=== PATIENT | female | born 1990 | race Two or more races ===

== ENCOUNTER 2017-06-30 06:57 | Emergency (ER) | payer MEDICAID ==
[~2017-06-30] VITALS: Ht 162.6 cm; Wt 81.6 kg
[2017-06-30] MEDS ORDERED: MORPHINE SULFATE 4 MG/ML SYR/VIAL ONE (07:30)
[2017-06-30] MEDS ORDERED: ONDANSETRON HCL 4 MG/2 ML VIAL ONE (07:30)
[2017-06-30] MEDS ORDERED: SODIUM CHLORIDE 0.9% 1,000 ML IVB ONE (07:31)
[2017-06-30] MEDS ORDERED: MORPHINE SULFATE 4 MG/ML SYR/VIAL IV ONE (07:45)
[2017-06-30] MEDS ORDERED: ONDANSETRON HCL 4 MG/2 ML VIAL IV ONE (07:45)
[2017-06-30 07:49] LABS: Basophils # (auto) 0 uL; Basophils % (auto) 0.4 % (0.0-2.0); Eosinophils # (auto) 0.1 uL; Eosinophils % (auto) 0.8 % (0.0-7.0); Hemoglobin 15.4 g/dL (12.2-16.2); Lymphocytes # (auto) 2.4 uL; Lymphocytes % (auto) 29.3 % (10.0-50.0); Mean Corpuscular Hemoglobin 29.9 pg (28.0-32.0); Mean Corpuscular Hgb Conc. 33.6 g/dL (32.0-36.0); Mean Corpuscular Volume 89.1 fL (80.0-100.0); Monocytes # (auto) 0.5 uL; Monocytes % (auto) 5.5 % (0.0-12.0); Neutrophils # (auto) 5.3 uL; Nucleated Red Blood Cells % 0.1 %; Platelet Count (auto) 310 10^3/uL (140-450); Red Blood Cells 5.16 10^6/uL (4.0-5.20); Red Cell Distribution Width 12.3 % (11.8-14.3); White Blood Cell 8.3 10^3/uL (4.4-10.8)
[2017-06-30] MEDS ORDERED: diphenhdrAMINE HCL 50 MG/1 ML VL ONE (07:53)
[2017-06-30] MEDS ORDERED: diphenhdrAMINE HCL 50 MG/1 ML VL IV ONE (08:00)
[2017-06-30 08:03] LABS: INR 1.02 (0.9-1.15); Partial Thromboplastin Time 28.1 sec (22.64-33.71); Prothrombin Time 11.1 sec (9.37-12.3)
[2017-06-30 08:14] LABS: Albumin 4.2 g/dL (3.4-5.0); Bilirubin, Total 0.6 mg/dL (0.2-1.0); Calcium 8.8 mg/dL (8.5-10.1); Magnesium 2.6 mg/dL (1.6-2.6); Potassium 3.4 mmol/L (3.5-5.1); Total Protein 7.8 g/dL (6.4-8.2)
[2017-06-30 08:20] VITALS: BP 131/72
[2017-06-30] MEDS ORDERED: PROMETHAZINE HCL 25 MG/ML 1ML IV ONE (08:30)
[2017-06-30] MEDS ORDERED: HYDROmorphone HCL 2 MG/ML VL IV ONE (08:30)
[2017-06-30] MEDS ORDERED: KETOROLAC TROMETH 30 MG/ML 1ML VIAL IV ONE (08:30)
[2017-06-30 08:36] LABS: Urine Bacteria FEW /hpf (None Seen); Urine Blood 3+ /uL (Negative); Urine Mucus FEW (None Seen); Urine WBC 9 /hpf (0 - 5)
== END 2017-06-30 09:20 | disposition home or self-care (01) ==
LOC: ER 06:57
DX: N20.0 Calculus of kidney (principal)
CPT/HCPCS: 36415; 74176; 80053; 81001; 83690; 83735; 84702; 85025; 85610; 85730; 96361; 96374; 96375; 99285; J1200; J1885; J2270; J2405; J2550; J7030

== ENCOUNTER 2019-01-24 12:23 | Emergency (ER) | payer MEDICAID ==
[~2019-01-24] VITALS: Ht 162.6 cm; Wt 77.1 kg
[2019-01-24 12:40] VITALS: BP 107/62
[2019-01-24 13:16] LABS: Urine Bacteria FEW /hpf (None Seen); Urine Blood TRACE /uL (Negative); Urine Mucus MODERATE (None Seen); Urine Specific Gravity 1.034 (1.001-1.035); Urine WBC 9 /hpf (0 - 5)
[2019-01-24 13:35] LABS: Basophils # (auto) 0.1 uL; Basophils % (auto) 0.6 % (0.0-2.0); Eosinophils # (auto) 0 uL; Eosinophils % (auto) 0.4 % (0.0-7.0); Hematocrit 43.6 % (36.0-46.0); Hemoglobin 14.8 g/dL (12.2-16.2); Lymphocytes # (auto) 1.2 uL; Lymphocytes % (auto) 14.6 % (10.0-50.0); Mean Corpuscular Hemoglobin 30.9 pg (28.0-32.0); Mean Corpuscular Hgb Conc. 33.8 g/dL (32.0-36.0); Mean Corpuscular Volume 91.2 fL (80.0-100.0); Monocytes # (auto) 0.5 uL; Monocytes % (auto) 5.4 % (0.0-12.0); Neutrophils # (auto) 6.7 uL; Platelet Count (auto) 228 10^3/uL (140-450); Red Blood Cells 4.78 10^6/uL (4.0-5.20); Red Cell Distribution Width 12.5 % (11.8-14.3); White Blood Cell 8.5 10^3/uL (4.4-10.8)
[2019-01-24 13:55] LABS: Albumin 4.2 g/dL (3.4-5.0); BUN/Creatinine Ratio 13.7; Calcium 9.4 mg/dL (8.5-10.1); Potassium 3.3 mmol/L (3.5-5.1)
[2019-01-24 13:57] LABS: Bilirubin, Total 0.6 mg/dL (0.2-1.0); Total Protein 7.6 g/dL (6.4-8.2)
[2019-01-24] MEDS ORDERED: SODIUM CHLORIDE 0.9% 1,000 ML IV ONE (18:15)
[2019-01-24] MEDS ORDERED: PROMETHAZINE HCL 25 MG/ML 1ML IV ONE (18:15)
[2019-01-24] MEDS ORDERED: POTASSIUM EFFERVESENT TAB 25 MEQ GT ONE (20:45)
[2019-01-24] MEDS ORDERED: POTASSIUM CHL 20 Meq TABLET PO ONE (21:15)
== END 2019-01-24 21:12 | disposition home or self-care (01) ==
LOC: ER 12:24
DX: O21.8 Other vomiting complicating pregnancy (principal); O23.41 Unspecified infection of urinary tract in pregnancy, first trimester; O99.281 Endocrine, nutritional and metabolic diseases complicating pregnancy, first trimester; E87.6 Hypokalemia; Z3A.01 Less than 8 weeks gestation of pregnancy
CPT/HCPCS: 36415; 76801; 80053; 81001; 84702; 85025; 94761; 96361; 96374; 99284; J2550

== ENCOUNTER 2019-03-14 08:24 | Emergency (ER) | payer MEDICAID ==
[~2019-03-14] VITALS: Ht 162.6 cm; Wt 74.4 kg
[2019-03-14 08:58] LABS: Urine Bacteria NONE SEEN /hpf (None Seen); Urine Blood Negative /uL (Negative); Urine Mucus FEW (None Seen); Urine Specific Gravity 1.022 (1.001-1.035); Urine WBC 1 /hpf (0 - 5)
[2019-03-14 09:00] VITALS: BP 122/52
== END 2019-03-14 09:57 | disposition home or self-care (01) ==
LOC: ER 08:26
DX: O99.511 Diseases of the respiratory system complicating pregnancy, first trimester (principal); J03.90 Acute tonsillitis, unspecified; Z3A.13 13 weeks gestation of pregnancy
CPT/HCPCS: 81001

== ENCOUNTER 2019-08-14 19:40 | Observation (INO) | payer MEDICAID | END 2019-08-14 23:09 | disposition home or self-care (01) | DRG 861 | LOC: LDRP 19:40 | PROVIDERS: ADMIT Specialist; ATTEND Specialist | DX: Z34.93 Encounter for supervision of normal pregnancy, unspecified, third trimester (principal); Z3A.37 37 weeks gestation of pregnancy | CPT/HCPCS: 59025; 76818; 81002; 84112; G0378 ==

== ENCOUNTER 2020-09-25 19:26 | Inpatient (IN) | payer MEDICAID ==
[~2020-09-25] VITALS: Ht 162.6 cm; Wt 90.7 kg
[2020-09-25 20:32] LABS: Urine Bacteria NONE SEEN /hpf (None Seen); Urine Blood 3+ /uL (Negative); Urine Mucus FEW (None Seen); Urine WBC 163 /hpf (0 - 5)
[2020-09-25 20:39] LABS: Urine Specific Gravity 1.028 (1.001-1.035)
[2020-09-25] MEDS ORDERED: HYDROcodone-ACET 5/325MG TAB PO ONE (21:15)
[2020-09-25 22:01] LABS: Basophils # (auto) 0 10 ^3/uL (0-0.2); Basophils % (auto) 0.3 % (0.0-2.0); Eosinophils # (auto) 0.1 10 ^3/uL (0-0.8); Eosinophils % (auto) 0.8 % (0.0-7.0); Hematocrit 37.6 % (36.0-46.0); Hemoglobin 12.9 g/dL (12.2-16.2); Lymphocytes # (auto) 1.7 10 ^3/uL (0.4-5.4); Lymphocytes % (auto) 17.6 % (10.0-50.0); Mean Corpuscular Hemoglobin 30.8 pg (28.0-32.0); Mean Corpuscular Hgb Conc. 34.2 g/dL (32.0-36.0); Mean Corpuscular Volume 90.2 fL (80.0-100.0); Monocytes # (auto) 0.5 10 ^3/uL (0-1.3); Monocytes % (auto) 5.3 % (0.0-12.0); Neutrophils # (auto) 7.3 10 ^3/uL (1.6-8.6); Platelet Count (auto) 217 10^3/uL (140-450); Red Blood Cells 4.17 10^6/uL (4.0-5.20); Red Cell Distribution Width 13.1 % (11.8-14.3); White Blood Cell 9.6 10^3/uL (4.4-10.8)
[2020-09-25 22:22] LABS: INR 1.02 (0.9-1.15)
[2020-09-25 22:27] LABS: Albumin 3.5 g/dL (3.4-5.0); BUN/Creatinine Ratio 21.2; Calcium 8.7 mg/dL (8.5-10.1); Magnesium 2.1 mg/dL (1.6-2.6); Potassium 3.7 mmol/L (3.5-5.1)
[2020-09-25 22:30] LABS: Bilirubin, Total 0.3 mg/dL (0.2-1.0)
[2020-09-25] MEDS ORDERED: metroNIDAZOLE 500MG/100ML 100 ML IV ONE (23:30)
[2020-09-25] MEDS ORDERED: CIPROFLOXACIN 400MG/200ML 200 ML IV ONE (23:30)
[2020-09-25] MEDS ORDERED: SODIUM CHLORIDE 0.9% 1,000 ML IV ONE (23:30)
[2020-09-26] MEDS ORDERED: NITROGLYCERIN 0.4 MG SL TAB SL PRN (00:15)
[2020-09-26] MEDS ORDERED: MORPHINE SULF INJ 2 MG/ML SYRINGE 1ML IV PRN (00:15)
[2020-09-26] MEDS: D5W/SOD CHL 0.45% 1,000 ML IV SCH ×2 (00:30→17:10)
[2020-09-26] MEDS: HYDROcodone-ACET 5/325MG TAB PO PRN ×3 (03:00→20:06)
[2020-09-26 04:50] VITALS: BP 105/57
[2020-09-26 05:21] VITALS: BP 105/57
[2020-09-26] MEDS: metroNIDAZOLE 500MG/100ML 100 ML IV SCH ×3 (05:53→21:56)
[2020-09-26] MEDS ORDERED: INFLUENZA QUAD 2020-2021 0.5 ML SYRG IM ONE (06:00)
[2020-09-26 08:47] VITALS: BP 108/55
[2020-09-26] MEDS: cefTRIAXone 1GM/50ML D5W 50 ML IV SCH (09:31)
[2020-09-26 10:15] LABS: Basophils # (auto) 0 10 ^3/uL (0-0.2); Basophils % (auto) 0.3 % (0.0-2.0); Eosinophils # (auto) 0.1 10 ^3/uL (0-0.8); Eosinophils % (auto) 1.3 % (0.0-7.0); Hematocrit 37.1 % (36.0-46.0); Hemoglobin 12.6 g/dL (12.2-16.2); Lymphocytes # (auto) 1.6 10 ^3/uL (0.4-5.4); Mean Corpuscular Hemoglobin 30.6 pg (28.0-32.0); Monocytes # (auto) 0.5 10 ^3/uL (0-1.3); Monocytes % (auto) 6.2 % (0.0-12.0); Neutrophils # (auto) 5.9 10 ^3/uL (1.6-8.6); Neutrophils % (auto) 72.2 % (37.0-80.0); Platelet Count (auto) 202 10^3/uL (140-450); Red Blood Cells 4.13 10^6/uL (4.0-5.20); Red Cell Distribution Width 12.8 % (11.8-14.3); White Blood Cell 8.2 10^3/uL (4.4-10.8)
[2020-09-26 10:30] LABS: Albumin 3.2 g/dL (3.4-5.0); Calcium 8.5 mg/dL (8.5-10.1); Potassium 3.8 mmol/L (3.5-5.1)
[2020-09-26] MEDS ORDERED: PHENYLEPHRINE HCL 10 MG/ML VL IV ONE (10:32)
[2020-09-26] MEDS ORDERED: MIDAZOLAM HCL 1MG/1ML-2 ML VIAL ONE (10:44)
[2020-09-26] MEDS ORDERED: MEPERIDINE HCL (50 MG/ML) 1 ML VIAL ONE (10:44)
[2020-09-26] MEDS ORDERED: fentaNYL CITRATE 100 MCG/2 ML VL ONE (10:44)
[2020-09-26 10:49] LABS: Bilirubin, Total 0.5 mg/dL (0.2-1.0); Total Protein 6.4 g/dL (6.4-8.2)
[2020-09-26] MEDS ORDERED: PROPOFOL 10 MG/ML 20 ML IV ONE (10:50)
[2020-09-26] MEDS ORDERED: DexAMETHasone SOD PHOS 10MG/1ML VIAL INJ ONE (10:50)
[2020-09-26] MEDS ORDERED: ROCURONIUM 10MG/ML 10ML VIAL IV ONE (10:51)
[2020-09-26] MEDS ORDERED: ONDANSETRON HCL 4 MG/2 ML VIAL ONE (11:09)
[2020-09-26] MEDS: BUPIVACAINE 0.5% MPF INJ 30ML SDV IJ ONE ×2 (11:22→11:27)
[2020-09-26] MEDS ORDERED: MIDAZOLAM HCL 1MG/1ML-2 ML VIAL IV PRN (12:00)
[2020-09-26] MEDS ORDERED: ePHEDrine SULFATE 50 MG/ML AMP IV PRN (12:00)
[2020-09-26] MEDS ORDERED: HYDROmorphone HCL 2 MG/ML VL IV PRN (12:00)
[2020-09-26] MEDS ORDERED: ONDANSETRON HCL 4 MG/2 ML VIAL IV PRN (12:00)
[2020-09-26] MEDS ORDERED: LABETALOL HCL 5 MG/ML 4ML SYRINGE IV PRN (12:00)
[2020-09-26] MEDS ORDERED: KETOROLAC TROMETH 30 MG/ML 1ML VIAL IV ONE (12:00)
[2020-09-26] MEDS ORDERED: MORPHINE SULFATE 4 MG/ML SYR/VIAL IV PRN (12:00)
[2020-09-26 12:43] VITALS: BP 107/67
[2020-09-26 16:47] VITALS: BP 105/49
[2020-09-26] MEDS: MORPHINE SULFATE 4 MG/ML SYR/VIAL IV PRN ×2 (18:05→22:42)
[2020-09-26 22:00] VITALS: BP 123/60
[2020-09-27] MEDS: ONDANSETRON HCL 4 MG/2 ML VIAL IV PRN ×3 (00:28→10:39)
[2020-09-27] MEDS: HYDROcodone-ACET 5/325MG TAB PO PRN ×2 (00:32→23:21)
[2020-09-27] MEDS: MORPHINE SULFATE 4 MG/ML SYR/VIAL IV PRN ×4 (04:55→20:22)
[2020-09-27 05:00] VITALS: BP 108/57
[2020-09-27] MEDS: metroNIDAZOLE 500MG/100ML 100 ML IV SCH ×3 (05:34→21:49)
[2020-09-27 06:33] LABS: Basophils # (auto) 0 10 ^3/uL (0-0.2); Basophils % (auto) 0.1 % (0.0-2.0); Eosinophils # (auto) 0 10 ^3/uL (0-0.8); Hematocrit 37.4 % (36.0-46.0); Hemoglobin 12.8 g/dL (12.2-16.2); Lymphocytes # (auto) 1.1 10 ^3/uL (0.4-5.4); Lymphocytes % (auto) 8.6 % (10.0-50.0); Mean Corpuscular Hgb Conc. 34.3 g/dL (32.0-36.0); Mean Corpuscular Volume 90.3 fL (80.0-100.0); Monocytes # (auto) 0.6 10 ^3/uL (0-1.3); Monocytes % (auto) 5.2 % (0.0-12.0); Neutrophils # (auto) 10.5 10 ^3/uL (1.6-8.6); Neutrophils % (auto) 86.1 % (37.0-80.0); Nucleated Red Blood Cells % 0.1 %; Platelet Count (auto) 240 10^3/uL (140-450); Red Blood Cells 4.15 10^6/uL (4.0-5.20); White Blood Cell 12.2 10^3/uL (4.4-10.8)
[2020-09-27 06:50] LABS: Potassium 3.7 mmol/L (3.5-5.1)
[2020-09-27 07:03] LABS: Albumin 3.1 g/dL (3.4-5.0); BUN/Creatinine Ratio 15.7; Bilirubin, Total 0.3 mg/dL (0.2-1.0); Calcium 8.6 mg/dL (8.5-10.1); Total Protein 6.5 g/dL (6.4-8.2)
[2020-09-27 08:31] VITALS: BP 103/50
[2020-09-27] MEDS: D5W/SOD CHL 0.45% 1,000 ML IV SCH (10:38)
[2020-09-27] MEDS: ESOMEPRAZOLE 40 MG/5ml VIAL INJ IV SCH (10:38)
[2020-09-27] MEDS: cefTRIAXone 1GM/50ML D5W 50 ML IV SCH (10:38)
[2020-09-27 11:04] LABS: Urine Bacteria NONE SEEN /hpf (None Seen); Urine Blood 1+ /uL (Negative); Urine Mucus FEW (None Seen); Urine Specific Gravity 1.032 (1.001-1.035); Urine WBC 6 /hpf (0 - 5)
[2020-09-27 12:34] VITALS: BP 119/52
[2020-09-27 16:35] VITALS: BP 114/66
[2020-09-27 22:00] VITALS: BP 117/71
[2020-09-28] MEDS: D5W/SOD CHL 0.45% 1,000 ML IV SCH ×2 (02:40→19:33)
[2020-09-28] MEDS: MORPHINE SULFATE 4 MG/ML SYR/VIAL IV PRN ×2 (02:41→08:44)
[2020-09-28 05:27] VITALS: BP 123/70
[2020-09-28] MEDS: metroNIDAZOLE 500MG/100ML 100 ML IV SCH ×3 (05:34→21:17)
[2020-09-28] MEDS: HYDROcodone-ACET 5/325MG TAB PO PRN (05:46)
[2020-09-28] MEDS: ONDANSETRON HCL 4 MG/2 ML VIAL IV PRN (06:17)
[2020-09-28 08:43] VITALS: BP 120/71
[2020-09-28] MEDS: ESOMEPRAZOLE 40 MG/5ml VIAL INJ IV SCH (08:43)
[2020-09-28] MEDS: cefTRIAXone 1GM/50ML D5W 50 ML IV SCH (08:43)
[2020-09-28 12:37] VITALS: BP 120/70
[2020-09-28] MEDS: ACETAMINOPHEN 325 MG TAB PO PRN (16:51)
[2020-09-28 17:14] VITALS: BP 114/64
[2020-09-28 22:00] VITALS: BP 102/62
[2020-09-29] MEDS: MORPHINE SULFATE 4 MG/ML SYR/VIAL IV PRN ×3 (00:52→10:28)
[2020-09-29 05:00] VITALS: BP 129/79
[2020-09-29] MEDS: metroNIDAZOLE 500MG/100ML 100 ML IV SCH (05:22)
[2020-09-29 06:17] LABS: Basophils # (auto) 0 10 ^3/uL (0-0.2); Basophils % (auto) 0.7 % (0.0-2.0); Eosinophils # (auto) 0.4 10 ^3/uL (0-0.8); Hematocrit 36.6 % (36.0-46.0); Hemoglobin 12.5 g/dL (12.2-16.2); Lymphocytes # (auto) 1.6 10 ^3/uL (0.4-5.4); Lymphocytes % (auto) 24.9 % (10.0-50.0); Mean Corpuscular Hemoglobin 30.7 pg (28.0-32.0); Mean Corpuscular Hgb Conc. 34.2 g/dL (32.0-36.0); Mean Corpuscular Volume 89.9 fL (80.0-100.0); Monocytes # (auto) 0.4 10 ^3/uL (0-1.3); Monocytes % (auto) 6.8 % (0.0-12.0); Neutrophils % (auto) 61.6 % (37.0-80.0); Nucleated Red Blood Cells % 0.1 %; Platelet Count (auto) 224 10^3/uL (140-450); Red Blood Cells 4.08 10^6/uL (4.0-5.20); White Blood Cell 6.6 10^3/uL (4.4-10.8)
[2020-09-29 06:35] LABS: Albumin 2.8 g/dL (3.4-5.0); Potassium 3.5 mmol/L (3.5-5.1)
[2020-09-29 06:41] LABS: BUN/Creatinine Ratio 8.5; Bilirubin, Total 0.2 mg/dL (0.2-1.0); Calcium 8.2 mg/dL (8.5-10.1); Total Protein 5.8 g/dL (6.4-8.2)
[2020-09-29] MEDS: cefTRIAXone 1GM/50ML D5W 50 ML IV SCH (08:42)
[2020-09-29] MEDS: ACETAMINOPHEN 325 MG TAB PO PRN (08:47)
[2020-09-29 09:00] VITALS: BP 109/69
[2020-09-29] MEDS: ESOMEPRAZOLE 40 MG/5ml VIAL INJ IV SCH (09:36)
[2020-09-29] MEDS: D5W/SOD CHL 0.45% 1,000 ML IV SCH (11:50)
[2020-09-29 13:00] VITALS: BP 110/66
[2020-09-29 14:19] VITALS: BP 110/66
== END 2020-09-29 16:20 | disposition home or self-care (01) | DRG 263 ==
LOC: ER 19:26 → TELE 09-26 00:16 → TELE-WESTW 09-26 03:18
PROVIDERS: ADMIT Nurse Practitioner Family; ATTEND Family Medicine
PROC: 0FT44ZZ Resection of Gallbladder, Percutaneous Endoscopic Approach (ICD-10-PCS; principal; 2020-09-26 10:44)
DX: K80.00 Calculus of gallbladder with acute cholecystitis without obstruction (principal); K59.00 Constipation, unspecified; N39.0 Urinary tract infection, site not specified; Z87.442 Personal history of urinary calculi; Z20.822 Contact with and (suspected) exposure to COVID-19
CPT/HCPCS: 36415; 76705; 80053; 81001; 83690; 83735; 84702; 85025; 85610; 86850; 86900; 86901; 87086; 87426; 96365; 96367; G0378; J0696; J1100; J1885; J2250; J2405; J2704; J3490

== ENCOUNTER 2023-06-14 06:44 | Emergency (ER) | payer MEDICAID ==
[~2023-06-14] VITALS: Ht 162.6 cm; Wt 72.7 kg
[2023-06-14 07:00] VITALS: BP 116/83; PULSE 58; RESP 17; O2SAT 100
[2023-06-14 07:51] LABS: Basophils # (auto) 0 10 ^3/uL (0-0.2); Basophils % (auto) 0.5 % (0.0-2.0); Eosinophils # (auto) 0.1 10 ^3/uL (0-0.8); Eosinophils % (auto) 1.1 % (0.0-7.0); Hematocrit 41.4 % (36.0-46.0); Hemoglobin 13.7 g/dL (12.2-16.2); Lymphocytes # (auto) 1.8 10 ^3/uL (0.4-5.4); Mean Corpuscular Hemoglobin 28.8 pg (28.0-32.0); Mean Corpuscular Hgb Conc. 33.1 g/dL (32.0-36.0); Mean Corpuscular Volume 87.2 fL (80.0-100.0); Monocytes # (auto) 0.3 10 ^3/uL (0-1.3); Monocytes % (auto) 6.2 % (0.0-12.0); Neutrophils # (auto) 3.1 10 ^3/uL (1.6-8.6); Neutrophils % (auto) 58.2 % (37.0-80.0); Red Blood Cells 4.75 10^6/uL (4.0-5.20); Red Cell Distribution Width 13.9 % (11.8-14.3); White Blood Cell 5.4 10^3/uL (4.4-10.8)
[2023-06-14 08:06] LABS: Alanine Aminotransferase 26 U/L (7-40); Albumin 4.3 g/dL (3.2-4.8); Alkaline Phosphatase 72 U/L (46-116); Anion Gap 7 (5-15); Aspartate Aminotransferase 24 U/L (13-40); BUN/Creatinine Ratio 12.9 (10.0-20.0); Bilirubin, Total 0.5 mg/dL (0.2-1.0); Blood Urea Nitrogen 9 mg/dL (9-23); Calcium 9.1 mg/dL (8.5-10.1); Carbon Dioxide 26 mmol/L (20-30); Chloride 108 mmol/L (98-107); Glucose 103 mg/dL (74-106); Potassium 3.4 mmol/L (3.5-5.1); Sodium 141 mmol/L (136-145); Total Protein 6.8 g/dL (5.7-8.2)
[2023-06-14 08:08] LABS: Urine Bacteria NONE SEEN /hpf (None Seen); Urine Blood 3+ /uL (Negative); Urine Clarity HAZY (Clear); Urine Color Yellow (Yellow); Urine Mucus FEW (None Seen); Urine Protein, UAD TRACE (Negative); Urine Specific Gravity 1.027 (1.001-1.035); Urine WBC 4 /hpf (0 - 5)
[2023-06-14 08:41] LABS: Lipase 46 U/L (12-53)
== END 2023-06-14 23:00 | disposition left against medical advice (07) ==
LOC: ER 06:44
DX: R10.9 Unspecified abdominal pain (principal)
CPT/HCPCS: 36415; 80053; 81001; 81025; 83690; 85025

== ENCOUNTER 2023-06-15 05:12 | Emergency (ER) | payer MEDICAID ==
[~2023-06-15] VITALS: Ht 162.6 cm; Wt 72.7 kg
[2023-06-15 06:17] LABS: Basophils # (auto) 0 10 ^3/uL (0-0.2); Basophils % (auto) 0.6 % (0.0-2.0); Eosinophils # (auto) 0.1 10 ^3/uL (0-0.8); Eosinophils % (auto) 1.6 % (0.0-7.0); Hemoglobin 13.2 g/dL (12.2-16.2); Lymphocytes # (auto) 1.6 10 ^3/uL (0.4-5.4); Lymphocytes % (auto) 33.3 % (10.0-50.0); Mean Corpuscular Hemoglobin 28.7 pg (28.0-32.0); Mean Corpuscular Hgb Conc. 33.1 g/dL (32.0-36.0); Mean Corpuscular Volume 86.6 fL (80.0-100.0); Monocytes # (auto) 0.3 10 ^3/uL (0-1.3); Monocytes % (auto) 6.4 % (0.0-12.0); Neutrophils # (auto) 2.8 10 ^3/uL (1.6-8.6); Neutrophils % (auto) 58.1 % (37.0-80.0); Red Blood Cells 4.62 10^6/uL (4.0-5.20); Red Cell Distribution Width 13.7 % (11.8-14.3); White Blood Cell 4.9 10^3/uL (4.4-10.8)
[2023-06-15 06:43] LABS: Alanine Aminotransferase 65 U/L (7-40); Albumin 4.1 g/dL (3.2-4.8); Alkaline Phosphatase 67 U/L (46-116); Anion Gap 6 (5-15); BUN/Creatinine Ratio 13.6 (10.0-20.0); Blood Urea Nitrogen 9 mg/dL (9-23); Calcium 8.6 mg/dL (8.7-10.4); Carbon Dioxide 26 mmol/L (20-30); Chloride 107 mmol/L (98-107); Glucose 101 mg/dL (74-106); Potassium 3.5 mmol/L (3.5-5.1); Sodium 139 mmol/L (136-145)
[2023-06-15 06:44] LABS: Aspartate Aminotransferase 50 U/L (13-40); Bilirubin, Total 0.6 mg/dL (0.2-1.0); Total Protein 6.5 g/dL (5.7-8.2)
[2023-06-15 08:19] LABS: Urine Bacteria FEW /hpf (None Seen); Urine Blood Negative /uL (Negative); Urine Clarity HAZY (Clear); Urine Color Yellow (Yellow); Urine Hyaline Cast FEW /lpf (0 - 2); Urine Mucus MANY (None Seen); Urine Protein, UAD 1+ (Negative); Urine Specific Gravity 1.039 (1.001-1.035); Urine WBC 7 /hpf (0 - 5)
[2023-06-15 11:39] VITALS: BP 110/53; TEMP 97.8
[2023-06-15 11:40] VITALS: PULSE 67; RESP 16; O2SAT 100
== END 2023-06-15 11:44 | disposition home or self-care (01) ==
LOC: ER 05:12
DX: K62.5 Hemorrhage of anus and rectum (principal); K64.8 Other hemorrhoids
CPT/HCPCS: 36415; 80053; 81001; 85025